=== PATIENT | male | born 1990 | race Caucasian/White ===

== ENCOUNTER 2024-06-21 04:08 | Day surgery (SDC) | payer OTHER ==
[2024-06-21] VITALS (71 sets, daily range): BP systolic 98–153; BP diastolic 61–108
[~2024-06-21] VITALS: Ht 167.6 cm; Wt 70.0 kg
[2024-06-21] MEDS ORDERED: ALBUTEROL SULFATE 2.5 MG VIAL IN PRN (07:30)
[2024-06-21] MEDS ORDERED: PANTOPRAZOLE SODIUM Sesquihydr 40 MG/TAB PO PRN (07:30)
[2024-06-21] MEDS ORDERED: FAMOTIDINE 20 MG/TAB PO PRN (07:30)
[2024-06-21] MEDS ORDERED: diazePAM 5 MG/TAB PO PRN ×2 (07:30→08:30)
[2024-06-21] MEDS ORDERED: cloNIDine HCL 0.1 MG/TAB PO PRN (07:30)
[2024-06-21] MEDS ORDERED: CYANOCOBALAMIN 500 MCG/TAB ( B12) PO PRN (07:30)
[2024-06-21] MEDS ORDERED: LACTATED RINGER'S 1,000 ML IV PRN ×3 (07:30→19:00)
[2024-06-21] MEDS ORDERED: SCOPOLAMINE 1.5 MG DIS TD PRN (07:30)
[2024-06-21] MEDS ORDERED: ASCORBIC ACID 4,000 MG in SODIUM CHLORIDE 0.9% 1,000 ML IV SCH (08:00)
[2024-06-21 08:38] LABS: BASO% 0.7 % (0-3); EOS% 3.8 % (0-8); HEMATOCRIT 37.4 % (39.0-50.0); HEMOGLOBIN 12.3 g/dl (14.0-18.0); IMMATURE GRANULOCYTES 0.5 % (0.0-5.0); MEAN CELL VOLUME 96.6 fL CALC (80.0-100.0); MEAN CORPUSCULAR HGB 31.8 pG CALC (26.0-32.0); MEAN CORPUSCULAR HGB CONC 32.9 g/dL CAL (32.0-36.0); MONO% 7.1 % (2-13); NEUT# 3.1 thou/uL (1.82-7.42); NEUT% 50.9 % (42-76); RED BLOOD COUNT 3.87 mill/uL (4.70-6.10)
[2024-06-21 08:47] LABS: ALBUMIN 4.1 g/dL (3.2-5.0); BILIRUBIN, TOTAL 0.2 mg/dL (0.2-1.3); POTASSIUM 4.8 mmol/l (3.5-5.1); TOTAL PROTEIN 6.8 g/dL (6.3-8.2)
[2024-06-21] MEDS ORDERED: NEURONTIN300 MG PO (08:51)
[2024-06-21] MEDS ORDERED: NOVOLIN R100 UNIT/1 (08:53)
[2024-06-21] MEDS ORDERED: TRESIBA FL100 UNIT/M (08:54)
[2024-06-21] MEDS ORDERED: LIDOCAINE HCL 1% (10MG/ML) 100 MG/10 ML MDV IV PRN (09:05)
[2024-06-21] MEDS ORDERED: MIDAZOLAM HCL 2 MG/2 ML VIAL IV PRN (09:05)
[2024-06-21] MEDS ORDERED: OCTREOTIDE ACETATE 100 MCG/VIAL SDV SC PRN (09:05)
[2024-06-21] MEDS ORDERED: PROPOFOL 10 MG/ML 100ML VIAL IV PRN (09:05)
[2024-06-21] MEDS ORDERED: diazePAM 5 MG/TAB VT PRN (09:05)
[2024-06-21] MEDS ORDERED: ROCURONIUM BROMIDE 10 MG/ML 5ML VIAL IV PRN (09:05)
[2024-06-21] MEDS ORDERED: LIDOCAINE HCL 1% (10MG/ML) 100 MG/10 ML MDV VT PRN ×2 (09:05)
[2024-06-21] MEDS ORDERED: NALTREXONE HCL 50 MG/TAB VT PRN (09:05)
[2024-06-21] MEDS ORDERED: PROPOFOL 100 ML IV PRN (09:05)
[2024-06-21] MEDS ORDERED: ONDANSETRON HCl 4 MG/2 ML SDV IV PRN ×3 (09:05→19:00)
[2024-06-21] MEDS ORDERED: DEXAMETHASONE SODIUM PHOSPHATE PF 10 MG/ML SDV IV PRN ×2 (09:05→19:00)
[2024-06-21] MEDS ORDERED: THIAMINE HCL 100 MG/ML 2ML VIAL IV PRN (09:05)
[2024-06-21] MEDS ORDERED: cloNIDine HYDROCHLORIDE 100 MCG/ML 10 ML INJ IV PRN (09:05)
[2024-06-21] MEDS ORDERED: MAGNESIUM SULFATE HEPTAHYDRATE 100 ML IV PRN (09:05)
[2024-06-21] MEDS ORDERED: SUCCINYLCHOLINE CHLORIDE 20 MG/ML 10ML VIAL IV PRN (09:05)
[2024-06-21] MEDS ORDERED: STERILE WATER FOR IRRIGATION 1,000 ML BTL IR PRN (09:05)
[2024-06-21] MEDS ORDERED: cloNIDine HCL 0.1 MG/TAB VT PRN (09:05)
[2024-06-21] MEDS ORDERED: DiphenhydrAMINE HCL 50 MG/ML SDV IV PRN (09:05)
[2024-06-21] MEDS ORDERED: SODIUM CHLORIDE 0.9% 250 ML IV ONE (09:31)
[2024-06-21] MEDS ORDERED: PHENYLEPHRINE HCL 10 MG/ML VIAL ONE (09:31)
[2024-06-21] MEDS ORDERED: DEXTROSE 250 ML IV PRN (14:20)
[2024-06-21] MEDS ORDERED: hydrALAZINE HCL 20 MG/ML VIAL(1 ML) IV ONE (14:20)
[2024-06-21] MEDS ORDERED: DEXTROSE 50% 50 ML/SYR IV PRN (14:20)
[2024-06-21] MEDS ORDERED: clonazePAM 1 MG/TAB PO PRN (15:10)
[2024-06-21] MEDS ORDERED: INSULIN LISPRO 100 UNITS/ML ML SC SCH (17:00)
[2024-06-21] MEDS ORDERED: NALTREXONE50 MG PO (18:06)
[2024-06-21] MEDS ORDERED: CLONIDINE0.1 MG PO (18:06)
[2024-06-21] MEDS ORDERED: KLONOPIN2 MG PO (18:09)
[2024-06-21] MEDS ORDERED: HALOPERIDOL LACTATE 5 MG/ML SDV IV PRN (19:00)
[2024-06-21] MEDS ORDERED: LORazepam 2 MG/ML IV PRN ×2 (19:00)
[2024-06-21] MEDS ORDERED: KETOROLAC TROMETHAMINE 30 MG/ML SDV IV PRN (19:00)
[2024-06-21] MEDS ORDERED: PROMETHAZINE HCL 25 MG in SODIUM CHLORIDE 0.9% 50 ML IV PRN (19:00)
[2024-06-21] MEDS ORDERED: PROMETHAZINE HCL 12.5 MG in SODIUM CHLORIDE 0.9% 50 ML IV PRN (19:00)
[2024-06-21] MEDS ORDERED: ACETAMINOPHEN 1,000 MG/100 ML VIAL IV PRN (19:00)
[2024-06-21] MEDS ORDERED: ACETAMINOPHEN 500 MG TAB PO PRN (19:00)
[2024-06-21] MEDS ORDERED: PATIENT' OWN MED CONTROLLED 1 EA DOSE IV PRN (21:00)
[2024-06-21] MEDS ORDERED: GABAPENTIN 300 MG/CAP PO SCH (21:00)
[2024-06-21] MEDS ORDERED: cloNIDine HCL 0.1 MG/TAB PO SCH (23:00)
[2024-06-22] MEDS ORDERED: cloNIDine HCL 0.1 MG/TAB PO PRN (04:00)
[2024-06-22] MEDS ORDERED: clonazePAM 1 MG/TAB PO PRN ×2 (04:00→08:00)
[2024-06-22 04:39] VITALS: BP 125/78
[2024-06-22 04:45] LABS: BASO% 0.1 % (0-3); HEMATOCRIT 36.7 % (39.0-50.0); HEMOGLOBIN 12.6 g/dl (14.0-18.0); IMMATURE GRANULOCYTES 0.3 % (0.0-5.0); LYMPH% 10.9 % (15-41); MEAN CELL VOLUME 92.7 fL CALC (80.0-100.0); MEAN CORPUSCULAR HGB 31.8 pG CALC (26.0-32.0); MEAN CORPUSCULAR HGB CONC 34.3 g/dL CAL (32.0-36.0); MONO% 0.6 % (2-13); NEUT# 9.65 thou/uL (1.82-7.42); NEUT% 88.1 % (42-76); RED BLOOD COUNT 3.96 mill/uL (4.70-6.10); RED CELL DISTRI WIDTH 12.9 % (11.5-15.5)
[2024-06-22 05:05] LABS: CREATININE 0.9 mg/dL (0.7-1.3); MAGNESIUM 1.8 mg/dL (1.6-2.3); POTASSIUM 3.9 mmol/l (3.5-5.1); TOTAL PROTEIN 6.9 g/dL (6.3-8.2)
[2024-06-22 05:11] LABS: BILIRUBIN, TOTAL 0.4 mg/dL (0.2-1.3)
[2024-06-22] MEDS ORDERED: cloNIDine HCL 0.1 MG/TAB PO SCH (08:00)
[2024-06-22] MEDS ORDERED: PANTOPRAZOLE SODIUM Sesquihydr 40 MG/TAB PO SCH (08:00)
[2024-06-22] MEDS ORDERED: ACETAMINOPHEN 325 MG/TAB PO SCH (08:00)
[2024-06-22] MEDS ORDERED: NALTREXONE HCL 50 MG/TAB PO SCH (08:00)
[2024-06-22 08:22] VITALS: BP 132/80
[2024-06-22] MEDS ORDERED: MAGNESIUM OXIDE 400 MG/TAB PO PRN (09:00)
[2024-06-22] MEDS ORDERED: INSULIN DETEMIR 100 UNITS/ML SC SCH (09:00)
[2024-06-22] MEDS ORDERED: ACETAMINOPHEN 500 MG TAB PO PRN (09:00)
[2024-06-22] MEDS ORDERED: Cholecalciferol 2,000 UNIT/TAB PO PRN (09:00)
[2024-06-22] MEDS ORDERED: POTASSIUM CHLORIDE 20 MEQ/TAB PO ONE (10:15)
[2024-06-22] MEDS ORDERED: NALTREXONE HCL 50 MG/TAB PO ONE (10:50)
[2024-06-22] MEDS ORDERED: MAGNESIUM SULFATE HEPTAHYDRATE 50 ML IV SCH (11:00)
== END 2024-06-22 16:10 | disposition home or self-care (01) | DRG 897 ==
LOC: MS2 04:08 → ANR 04:08
PROVIDERS: ATTEND Anesthesiology
DX: F11.20 Opioid dependence, uncomplicated (principal)
CPT/HCPCS: J1100; J2354; J3475